=== PATIENT | female | born 1990 | race Caucasian/White ===

== ENCOUNTER → 2020-06-24 08:49 | Outpatient (CLI) | payer OTHER, SELFPAY ==
--- NOTE | ~2020-06-24 | US_ITS ---
EXAMINATION: US transvaginal DATE: 06/24/2020 09:47 INDICATION: Palpable cervical mass by examination Comparison:No prior studies for comparison. TECHNIQUE: Multiple endovaginal sonographic images of the pelvis performed. FINDINGS: The uterus measures 6.6 x 3 cm greatest sagittal dimension. There is nabothian cyst measuri ng 4 mm. The endometrial complex measures 7. The right ovary measures 2.3 x 1.9 x 1.8 cm and the left ovary measures 2.3 x 1.5 x 2.3 cm. There ar e small follicles in each ovary. There is a small cyst in the left adnexa, likely exophytic from the ovary. There is no free fluid in the pelvis. There are no abnormal masses seen on either side. IMPRESSION: 1. Unremarkable pelvic ultrasound. Reviewed, dictated and finalized at location A. DATA ARCHITECT
== END ==
PROVIDERS: Visit Provider Nurse Practitioner
DX: R93.89 Abnormal findings on diagnostic imaging of other specified body structures (principal)
CPT/HCPCS: 76830